=== PATIENT | female | born 1950 | race Native Hawaiian/Other Pacific Islander ===

== ENCOUNTER 2019-08-28 16:32 | Emergency (ER) | payer OTHER, MEDICARE ==
--- NOTE | 2019-08-28 16:57 | Emergency Department Record ---
History of Present Illness - General Chief Complaint: Fall Injury Stated Complaint: FALL Time Seen by Provider: 08/28/19 16:39 Source: Patient, Family Mode of Arrival: Wheelchair Limitations: No limitations - History of Present Illness Initial Comments: 68 yo female presents after a trip and fall at a [place] [employer]. She hit the ground with her head. She thinks her glasses injured her forehead. She has a small bleeding laceration on the left forehead. She reports she had a fall a month ago and was hospitalized for about four days with an intracranial hemorrhage. She was on Plavix at that time. She has NOT taken the Plavix for a month. No other blood thinners. She has mild headache. No neck pain. No dizziness. No confusion. No vision changes. She denies any other injuries. MD Complaint: Fall -: Minutes(s) Fall From: Standing When Fall Occurred: Just prior to arrival Fall Witnessed: Yes, by family Place Fall Occurred: Other ([email or web address]) Loss of Consciousness: None Prolonged Down Time?: No Symptoms Prior to Fall: None Location: Head Severity: Mild Quality: Aching Context: Tripped/slipped Associated Symptoms: Denies - Debbi Coma Scale Eye Response: (4) Open spontaneously Motor Response: (6) Obeys commands Verbal Response: (5) Oriented [place] Total: 15 - Related Data Home Medications Medication Instructions Recorded Confirmed Last Taken Aspirin 81 mg PO DAILY 08/28/19 08/28/19 Unknown Calcium Carbonate [Calcium] 500 mg PO DAILY 08/28/19 08/28/19 Unknown Carvedilol [Coreg] 12.5 mg PO BID 08/28/19 08/28/19 Unknown Cholecalciferol (Vitamin D3) 2,000 unit PO DAILY 08/28/19 08/28/19 Unknown [Vitamin D3] Famotidine [Pepcid] 20 mg PO DAILY 08/28/19 08/28/19 Unknown Isosorbide Mononitrate [Imdur] 60 mg PO DAILY 08/28/19 08/28/19 Unknown Magnesium 200 mg PO DAILY 08/28/19 08/28/19 Unknown Mexiletine HCl 150 mg PO TID 08/28/19 08/28/19 Unknown Multivitamin [One Daily 1 each PO DAILY 08/28/19 08/28/19 Unknown Multivitamin] Niacin 250 mg PO DAILY 08/28/19 08/28/19 Unknown Simvastatin [Zocor] 80 mg PO DAILY 08/28/19 08/28/19 Unknown Trazodone HCl 50 mg PO QHS 08/28/19 08/28/19 Unknown Venlafaxine HCl [Effexor] 75 mg PO DAILY 08/28/19 08/28/19 Unknown Vitamin B Complex/Folic Acid 0.4 mg PO DAILY 08/28/19 08/28/19 Unknown [B-Complex Tablet] Allergies Allergy/AdvReac Type Severity Reaction Status Date / Time codeine Allergy ITCHING Verified 08/28/19 16:53 hydrocodone [From Vicodin] Allergy ITCHING Verified 08/28/19 16:53 Review of Systems Constitutional: Denies: Chills, Fever, Malaise, Weakness Eyes: Denies: Eye discharge, Eye pain, Photophobia, Vision change ENT: Denies: Congestion, Ear pain, Throat pain Respiratory: Denies: Cough, Dyspnea Cardiovascular: Denies: Chest pain, Palpitations, Syncope Endocrine: Denies: Fatigue, Polydipsia, Polyuria Gastrointestinal: Denies: Abdominal pain, Diarrhea, Nausea, Vomiting Genitourinary: Denies: Dysuria, Urgency Musculoskeletal: Reports: Arthralgia (patellar injury one month ago). Denies: Back pain, Myalgia Skin: Denies: Bruising Neurological: Reports: Headache. Denies: Abnormal gait, Confusion, Numbness, Seizure, Weakness Psychiatric: Denies: Anxiety Hematological/Lymphatic: Denies: Easy bleeding, Easy bruising Physical Exam - General General Appearance: Alert, Oriented x3, Cooperative, No acute distress Limitations: No limitations - Head Head exam: negative: Atraumatic, Normal inspection Head exam detail: Laceration (3mm) Image of Face/Head: 1 - 3mm laceration to the forehead just over a vein with bleeding that stops with direct pressure. - Eye Eye exam: Normal appearance, PERRL, EOMI. negative: Conjunctival injection, Periorbital tenderness - ENT ENT exam: Normal exam Ear exam: Normal external inspection Nasal Exam: Normal inspection Mouth exam: Normal external inspection - Neck Neck exam: Normal inspection - Respiratory Respiratory exam: Normal lung sounds bilaterally. negative: Chest wall tender ness, Decreased breath sounds, Prolonged expiratory, Respiratory distress, Rhonchi, Stridor, Wheezes - Cardiovascular Cardiovascular Exam: Regular rate, Normal rhythm, Normal heart sounds - GI/Abdominal GI/Abdominal exam: Soft. negative: Distended, Guarding, Rebound, Rigid, Tenderness - Rectal Rectal exam: Deferred - exam: Deferred - Extremities Extremities exam: Normal inspection. negative: Pedal edema, Tenderness - Back Back exam: Denies: CVA tenderness (R), CVA tenderness (L), Paraspinal tenderness, Tenderness, Vertebral tenderness - Neurological Neurological exam: Alert, Motor sensory deficit, Normal gait, Oriented X3. negative: Altered - Psychiatric Psychiatric exam: Normal affect, Normal mood - Skin Type of lesion: Laceration (3mm) Course - Reevaluation(s) Reevaluation #1: 08/28/19 16:59 Initially a Trauma activation was called due to being on Plavix The patient then informed me she has not been on it for a month She is well appearing, conversational The small area of bleeding stopped with directed pressure The wound was cleaned .3ml of Lidocaine with Epi was injected 08/28/19 17:29 The Hgb is 9.3 The BMP is normal PT/INR normal 08/28/19 17:[address] C-spine are negative 08/28/19 18:16 Procedure: Scalp laceration 4mm laceration of the scalp Wound was cleaned and prepped in sterile fashion, no residual FB identified on examination. The wound was copiously irrigated with NS Wound was anesthetized with 1mL of 1% Lidocaine with epinephrine The laceration was repaired with Prolene 6-0 sutures in interrupted fashion. 2 sutures placed Patient tolerated the procedure well without complications. We discussed home care, reasons for immediate return if any concerns, and suture removal in 7 days Medical Decision Making - Lab Data Result diagrams: 08/28/19 16:55 08/28/19 16:55 Disposition Disposition: Discharge Clinical Impression: Laceration Head contusion Qualifiers: Encounter type: initial encounter Contusion of head detail: scalp Qualified Code(s): S00.03XA - Contusion of scalp, initial encounter Disposition: Home, Self-Care Condition: (1) Good Instructions: Laceration (ED) Additional Instructions: Return for suture removal in 7 days Be seen or return if you have headaches, bleeding, dizziness, or any new concerns about the healing of the laceration Forms: Patient Portal Access Time of Disposition: 18:17 Quality - Quality Measures Quality Measures: N/A, Blunt Head Trauma (>2yr) - Blunt Head Trauma - Adult Quality Measure: Measure #415: Utilization of CT for Minor Blunt Head Trauma ICD10 Codes Entered: Yes Was CT ordered: Yes Does Patient Have Any of the Following: Taking Antiplatelet Med Debbi Score: Please complete Debbi Coma Scale above Utilization of CT for Minor Blunt Head Trauma: Patient Excluded [[id number]] - Blood Pressure Screening Does Patient Have Any of the Following: No Blood Pressure Classification: Hypertensive Reading Systolic Measurement: 150 Diastolic Measurement: 74 Screening for High Blood Pressure: Patient Exclusion, Hx of HTN [G9744] Pre-Hypertensive Follow-up Interventions: Referral to alternative/primary care provider.
[2019-08-28 17:05] LABS: HEMATOCRIT 30.9 % (35.0-47.0); HEMOGLOBIN 9.3 gm/dl (11.6-16.0); MEAN CELL VOLUME 95.1 fl (81-97); MEAN CORPUSCULAR HEMOGLOBIN 28.6 pg (27-33); MEAN CORPUSCULAR HGB CONC 30.1 g/dl (32-36); RED BLOOD COUNT 3.25 M/uL (3.80-5.40); WHITE BLOOD COUNT W/O DIFF 8.7 K/uL (4.2-12.2)
[2019-08-28 17:06] LABS: BASO % 0.5 % (0-6); EOS % 2.5 % (0-6); GRAN % 71.3 % (47-80); LYMPH % 14.1 % (16-45); MONO % 11.6 % (0-9); PLATELET COUNT 323 K/uL (130-400); RED CELL DISTRIBUTION WIDTH 14.9 % (11.5-14.5)
[2019-08-28 17:13] LABS: BLOOD UREA NITROGEN 16 mg/dL (8-23); CREATININE 0.9 mg/dL (0.5-0.9); EST GLOMERULAR FILTRATION RATE > 60 mL/min
[2019-08-28 17:15] LABS: INR 1.1; PARTIAL THROMBOPLASTIN TIME 29.6 SECONDS (24.5-39.1); PROTHROMBIN TIME (PATIENT) 11.2 SECONDS (9.5-12.1)
[2019-08-28 17:16] LABS: GLUCOSE,RANDOM 109 mg/dL (74-109)
[2019-08-28] MEDS ORDERED: TOPICAL LIDOCAINE W/ EPI 5 ML TOP ONE (17:28)
[2019-08-28] MEDS ORDERED: TRANEXAMIC ACID 1,000 MG/10 ML ML TOP ONE (17:28)
--- NOTE | 2019-08-28 17:39 | CT SCAN REPORT ---
EXAMINATION: CT Head without Contrast EXAM DATE: 08/28/2019 5:23 PM TECHNIQUE: Routine axial CT was acquired from skull base through vertex without contrast. Sagittal an d coronal isotropic reformatted images are reviewed. INDICATION: fall, head injury, laceration, prior trauma 1mo. COMPARISON: None. ENCOUNTER: Not applicable HAND DOMINANCE: Unknown. FINDINGS: No intracranial fluid collection or hemorrhage. Brain attenuation and configuration are within normal limits. Age-appropriate CSF spaces. Old medial orbital wall fracture deformities. IMPRESSION: No acute posttraumatic intracranial or osseous sequela Dictated by: Aneesh Chang MD on 08/28/2019 5:35 PM. .
--- NOTE | 2019-08-28 17:43 | CT SCAN REPORT ---
EXAMINATION: CT Cervical Spine without IV Contrast EXAM DATE: 08/28/2019 5:23 PM TECHNIQUE: Standard protocol cervical spine CT imaging was performed without intravenous contrast. Co abhay and sagittal images were reconstructed. INDICATION: fall, head injury, laceration, prior trauma 1mo COMPARISON: None ENCOUNTER: Not applicable FINDINGS: No fracture demonstrated. Moderate odontoatlantal arthrosis. Moderate left C2-C3 facet arthrosis. Mild C3-C4 spondylosis, moder ate at C4-C5 and C5-C6, mild at C6-C7. Vertebral heights and alignment are maintained. Reversal cervi nakita lordosis at C4-C5. No critical degenerative central canal compromise demonstrated. Right C3-C4, b ilateral C4-C5 and right C5-C6 uncovertebral osteophyte neuroforaminal encroachment. Notable calcific plaque burden at the carotid bifurcations, right greater than left. IMPRESSION: No acute fracture demonstrated Consider follow-up radiography and/or MRI if symptoms persist Dictated by: Aneesh Chang MD on 08/28/2019 5:37 PM. .
[2019-08-28] MEDS ORDERED: LIDOCAINE 1% W/EPI 1:100,000 MDV 20 ML VIAL SQ ONE (17:52)
== END 2019-08-28 18:32 | disposition home or self-care (01) ==
LOC: ER 16:32
DX: S01.01XA Laceration without foreign body of scalp, initial encounter (principal); S00.03XA Contusion of scalp, initial encounter; W01.10XA Fall on same level from slipping, tripping and stumbling with subsequent striking against unspecified object, initial encounter; Y92.89 Other specified places as the place of occurrence of the external cause; I10 Essential (primary) hypertension
CPT/HCPCS: 12011; 70450; 72125; 80048; 85025; 85610; 85730; 99284